=== PATIENT | male | born 2000 | race Two or more races ===

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

== ENCOUNTER 2025-05-26 15:00 | Emergency (ER) | payer MEDICAID ==
[~2025-05-26] VITALS: Ht 175.3 cm; Wt 77.2 kg
[~2025-05-26 15:00] MED LIST: DIPH-751; DIVA1TAB58
[2025-05-26 15:11] VITALS: TEMP 97.9
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
[2025-05-26 16:06] LABS: Hematocrit 43.7 % (41.0-53.0); Hemoglobin 14.9 g/dL (13.5-17.5); Mean Corpuscular Hemoglobin 30.1 pg (28.0-32.0); Mean Corpuscular Volume 88.0 fL (80.0-100.0); Nucleated Red Blood Cells % 0.0 %
[2025-05-26 16:20] LABS: Chloride 105 mmol/L (98-107); Potassium 4.0 mmol/L (3.5-5.1); Sodium 140 mmol/L (136-145)
[2025-05-26 16:21] LABS: Anion Gap 11 (5-15); Carbon Dioxide 24 mmol/L (20-31)
[2025-05-26 16:22] LABS: Calcium 9.7 mg/dL (8.7-10.4)
[2025-05-26 16:27] LABS: BUN/Creatinine Ratio 18.2 (10.0-20.0); Blood Urea Nitrogen 16 mg/dL (9-23); Glucose 91 mg/dL (74-106)
--- NOTE | 2025-05-26 16:33 | DVH ---
EXAM: CT HEAD WITHOUT CONTRAST HISTORY: fall COMPARISON: None TECHNIQUE: Noncontrast axial CT images of the head were performed. Sagittal and coronal reformatted images were obtained. This CT exam was performed using 1 or more of the following dose reduction techniques: Automated exposure control, adjustment of the mA and/or kv according to patient size, or the use of iterative reconstruction techniques. Radiation Dose: CTDI volume is 57.35 mGy. Dose-length product is 1071.03 mGy*cm FINDINGS: No intracranial hemorrhage, mass, midline shift, hydrocephalus, or evidence of acute large vessel infarct. The paranasal sinuses are clear. The bilateral mastoid air cells and middle ear spaces are clear. No cranial fracture or scalp edema. IMPRESSION: No acute intracranial process.
[2025-05-26 17:00] VITALS: BP 109/67; PULSE 95; RESP 12; O2SAT 95
[2025-05-26] MEDS: ACETAMINOPHEN 325 MG TAB PO ONE (17:14)
--- NOTE | 2025-05-29 08:57 | ECG ---
[facility] Test Date: 2025-05-26 Test Time: 15:02:57 Pat Name: JUSTINO KELLY Department: ED Room: Gender: M [employer]: RISSA : 2000 Requested By: PUNEET LEROY Order Number: [id number] Reading MD: Lj Mcnair Measurements Intervals [place] Rate: 119 P: 52 AR: 161 QRS: 72 QRSD: 98 T: 55 QT: 313 QTc: 441 Interpretive Statements Sinus tachycardia ST elev, probable normal early repol pattern Electronically Signed On 06-01-2025 19:00:28 PST by Lj Mcnair Please click the below link to view image of tracing.
== END 2025-05-26 17:38 | disposition home or self-care (01) ==
LOC: EDBD 15:00 → ER 15:00
DX: T75.4XXA Electrocution, initial encounter (principal); Z79.899 Other long term (current) drug therapy; W86.8XXA Exposure to other electric current, initial encounter; Y93.89 Activity, other specified; Y92.89 Other specified places as the place of occurrence of the external cause; Y99.8 Other external cause status
CPT/HCPCS: 36415; 70450; 80048; 85025; 93005